=== PATIENT | male | born 1990 | race Caucasian/White ===

== ENCOUNTER 2017-05-26 16:06 | Emergency (ER) | payer SELFPAY ==
[~2017-05-26] VITALS: Ht 180.3 cm; Wt 85.8 kg
[2017-05-26 16:40] VITALS: BP 132/74; PULSE 82; RESP 16; TEMP 98.4; O2SAT 100
--- NOTE | 2017-05-26 17:07 | PD ---
HPI . left leg infection x 2-3 days Chief Complaint: Skin Problem Time Seen by Provider: 17:07 Travel History International Travel<30 days: No Contact w/Intl Traveler<30days: No Traveled to known affect area: No History of Present Illness HPI 27 yr old male with hx of MRSA and numerous drug allergies here with c/o left leg infection that started about 2-3 days ago. Patient does not recall any insect bite of injury. He has a small pustule on his left leg medial to the knee that has been getting redder as the days have progressed. He has been using Hibiclens to clean it and it is not getting better. He denies any fever or chills. He has many drug allergies and wanted to start meds before the area worsens. He is accompanied by his significant other. He is in town on vacation. [facility] Past Medical History Medical History: Denies Significant Hx Social History Tobacco Use: No Allergies-Medications (Allergen,Severity, Reaction): Coded Allergies: Biaxin (Verified Allergy, Intermediate, hives, sob, 05/26/17) Cephalosporins (Verified Allergy, Intermediate, 05/26/17) Clindamycin (Verified Allergy, Intermediate, hives, sob, 05/26/17) Penicillin (Verified Allergy, Intermediate, hives, sob, 05/26/17) Sulfa (Verified Allergy, Intermediate, hives, sob, 05/26/17) Zithromax (Verified Allergy, Intermediate, hives, sob, 05/26/17) Reported Meds & Prescriptions Reported Meds & Active Scripts Active Doxycycline Hyclate 100 Mg Cap 100 Mg PO BID Review of Systems General / Constitutional: No: Fever Eyes: No: Visual changes HENT: No: Headaches Cardiovascular: No: Chest Pain or Discomfort Respiratory: No: Shortness of Breath Gastrointestinal: No: Abdominal Pain Genitourinary: No: Dysuria Musculoskeletal: No: Pain Skin: Positive Other (left leg infection ), No Rash Neurologic: No: Weakness Psychiatric: No: Depression Endocrine: No: Polydipsia Hematologic/Lymphatic: No: Easy Bruising Physical Exam Narrative GENERAL: AAO x 3, no acute distress, Well-nourished, well-developed patient. SKIN: Warm and dry. No visible rashes or bruising. small pustule with surrounding erythema, well circumscribed, without significant induration or fluctuance. tender to touch HEAD: Normocephalic and atraumatic. EYES: No scleral icterus. No injection or drainage. ENT: No nasal drainage noted. Mucous membranes pink. Airway patent. NECK: Supple, trachea midline. No JVD. CARDIOVASCULAR: Regular rate and rhythm without murmurs, gallops, or rubs. RESPIRATORY: Breath sounds equal bilaterally. No accessory muscle use. No rhonchi or rales. GASTROINTESTINAL: visual inspection normal EXTREMITIES: No cyanosis or edema. BACK: No obvious deformity. No CVA tenderness. NEURO: CN II-12 intact, PSYCH: AAO x 3, normal affect. Data Data Last Documented VS Vital Signs Date Time Temp Pulse Resp B/P Pulse Ox O2 Delivery O2 Flow Rate FiO2 05/26/17 16:40 98.4 82 16 132/74 100 MDM Medical Decision Making Medical Screen Exam Complete: Yes Emergency Medical Condition: Yes Medical Record Reviewed: Yes Differential Diagnosis cellulitis, insect bite, hx of MRSA, Narrative Course 27 yr old male with hx of MRSA and multiple drug allergies here with left leg infection. He does have a mild superficial cellulitis. With his multiple drug allergies I will use Doxy. I have looked this up on UP to date and it is recommended if patient allergic to sulfa and clindamycin. I discussed signs of worsening infection with the patient and his significant other. I advised if any worsening to go to nearest ED. Advised to keep area clean with soap and water daily. Patient verbalized understanding of instructions, questions were answered, and thanked me for their care. I advised them if their condition worsens, please return to the nearest emergency room for further care. Diagnosis Primary Impression: Cellulitis of left leg Patient Instructions: General Instructions Additional Instructions: [place] for worsening signs of infection which include fever, increased redness , increased warmth, purulent drainage, increased swelling or streaking. If any of these develop, please go to the nearest emergency room. Please return to emergency department if your symptoms return or worsen. Follow up with your primary care provider. Take medications as prescribed. Med/Other Pt SpecificInfo: Prescription(s) given Scripts Doxycycline Hyclate 100 Mg Pdc063 Mg PO BID #20 CAP Ref 0 Prov:Gail Reich DO 05/26/17 Disposition: 01 DISCHARGE HOME Condition: Stable Marlyn Velez May 26, 2017 17:07
[2017-05-26] MEDS ORDERED: DOXY100C PO (17:16)
== END 2017-05-26 17:47 | disposition home or self-care (01) ==
LOC: PHEFT 16:06
DX: L03.116 Cellulitis of left lower limb (principal)
CPT/HCPCS: 99283